=== PATIENT | female | born 1930 | race Caucasian/White ===

== ENCOUNTER 2020-06-17 07:16 | Emergency (ER) | payer OTHER ==
[~2020-06-17] VITALS: Ht 152.4 cm; Wt 36.3 kg
[~2020-06-17 07:16] MED LIST: CHOLESTEROL; HTN MED
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
--- NOTE | 2020-06-17 07:45 | NUR ---
IV LINE STARTED BLOOD DRAWN AND SENT TO LAB.
[2020-06-17 07:58] LABS: BASOPHILS % (AUTO) 0.7 % (0.0-2.0); HEMATOCRIT 42 % (33-45); LYMPHOCYTES # (AUTO) 0.3 /CMM (0.8-4.8); LYMPHOCYTES % (AUTO) 5.7 % (20.0-44.0); MEAN CORPUSCULAR HGB CONC 33 g/dl (31.0-36.0); MEAN CORPUSCULAR VOLUME 92 fL (82-100); MONOCYTES # (AUTO) 0.3 /CMM (0.1-1.30); MONOCYTES % (AUTO) 6.6 % (2.0-12.0); NEUTROPHILS # (AUTO) 3.9 /CMM (1.8-8.9); PLATELET COUNT (AUTO) 172 /CMM (150-450); RED BLOOD CELL COUNT(AUTO) 4.55 MIL/uL (4.0-5.2); WHITE BLOOD COUNT (AUTO) 4.5 K/uL (4.3-11.0)
[2020-06-17 08:11] LABS: CALCIUM, SERUM 8.9 mg/dL (8.5-10.1); CREATININE 1.2 mg/dL (0.6-1.3); POTASSIUM 3.9 mmol/L (3.5-5.1)
[2020-06-17 08:20] LABS: ALBUMIN 3.2 g/dL (3.4-5.0); BILIRUBIN,DIRECT 0.1 mg/dL (0.0-0.2); BILIRUBIN,TOTAL 0.5 mg/dL (0.2-1.0); TOTAL PROTEIN, SERUM 7.4 g/dL (6.4-8.2)
[2020-06-17] MEDS: IV NS 0.9% 500 ML BAG IV ONE (08:21)
[2020-06-17 08:25] LABS: BILIRUBIN,URINE SMALL (NEGATIVE); BLOOD, URINE Moderate Ery/uL (NEGATIVE); KETONES,URINE 40 (NEGATIVE); LEUKOCYTE ESTERASE ,URINE Negative (NEGATIVE); NITRITE, URINE Negative (NEGATIVE); PH,URINE 5.5 (5.0-8.0); PROTEIN,URINE 100 mg/dl (NEGATIVE); UGLUCOSE Negative (NEGATIVE); UROBILINOGEN,URINE 0.2 EU/dL (0.2)
[2020-06-17 08:29] LABS: APPEARANCE,URINE SLIGHTLY CLOUDY (CLEAR); COLOR,URINE DARK YELLOW (YELLOW)
[2020-06-17 08:35] LABS: BACTERIA,URINE Few /HPF (None Seen); SQUAMOUS EPITHELIAL CELL,UR Moderate /HPF (None Seen)
[2020-06-17 08:36] LABS: MUCUS,URINE Few /LPF (None Seen)
--- NOTE | 2020-06-17 10:18 | NUR ---
CALLED [facility]. ETA 30 MINS.
--- NOTE | 2020-06-17 10:37 | NUR ---
Note stephy in EDM - 06/17/20 at 1038 by ZAYDA SON AT BEDSIDE. SPOKE W/ DR BORREGO. Patient discharged to home in stable condition. Written and verbal after care instructions given. Patient verbalizes understanding of instruction.IV removed. Catheter intact and site benign. Pressure and 4x4 applied to site. No bleeding noted.
--- NOTE | 2020-06-17 10:37 | NUR ---
son at bedside, spoke to dr mart. Patient discharged to home in stable condition. Written and verbal after care instructions given. Son verbalizes understanding of instruction.IV removed. Catheter intact and site benign. Pressure and 4x4 applied to site. No bleeding noted.
[2020-06-17 10:39] VITALS: BP 142/99
== END 2020-06-17 10:40 | disposition home or self-care (01) ==
LOC: ER 07:21
DX: S60.222A Contusion of left hand, initial encounter (principal); N39.0 Urinary tract infection, site not specified; G31.9 Degenerative disease of nervous system, unspecified; M50.30 Other cervical disc degeneration, unspecified cervical region; I10 Essential (primary) hypertension; F03.90 Unspecified dementia, unspecified severity, without behavioral disturbance, psychotic disturbance, mood disturbance, and anxiety; W18.39XA Other fall on same level, initial encounter; Y93.89 Activity, other specified; Y92.89 Other specified places as the place of occurrence of the external cause; Y99.8 Other external cause status
CPT/HCPCS: 36415; 70450; 71045; 72125; 72170; 73130; 80048; 80076; 81001; 82550; 84484; 85025; 85730; 93005; 99285; J7040; 81000-TC